=== PATIENT | female | born 1995 | race Caucasian/White ===

== ENCOUNTER 2024-02-28 18:37 | Emergency (ER) | payer BC, OTHER ==
[2024-02-28 18:45] VITALS: TEMP 98.6; BMI 45.9
[2024-02-28] MEDS ORDERED: SODIUM CHLORIDE 1,000 ML IV SCH (19:00)
[2024-02-28 19:33] LABS: BASO % 0.9 % (0-2.0); EOS % 1.3 % (0-4.5); HEMATOCRIT 41.1 % (32.4-45.2); HEMOGLOBIN 13.9 GM/dL (10.7-15.3); LYMPH % 24.5 % (8-40); MCH 28.1 pg (25.7-33.7); MCHC 33.9 g/dl (32.0-36.0); MEAN CELL VOLUME 82.8 fl (80-96); MEAN PLT VOLUME 7.6 fl (7.5-11.1); MONO % 9.8 % (3.8-10.2); NEUT % 63.5 % (42.8-82.8); PLATELET COUNT 228 10^3/uL (134-434); RBC 4.96 M/mm3 (3.60-5.2); WHITE BLOOD COUNT 8.5 K/mm3 (4.0-10.0)
[2024-02-28 19:43] LABS: INR 1.04 (0.83-1.09)
[2024-02-28 19:45] LABS: ACTIVATED PTT 31.9 SECONDS (25.2-36.5)
[2024-02-28 20:34] LABS: CHLORIDE 104 mmol/L (98-107); POTASSIUM 4.1 mmol/L (3.5-5.1); SODIUM 137 mmol/L (136-145)
[2024-02-28 20:36] LABS: ALBUMIN 4.1 g/dl (3.4-5.0); ANION GAP 7 mmol/L (4-13); BLOOD UREA NITROGEN 16.2 mg/dL (7-18); CALCIUM 9.6 mg/dL (8.5-10.1); CO2 26 mmol/L (21-32); GLUCOSE,RANDOM 82 mg/dL (74-106)
[2024-02-28 20:39] LABS: CREATININE 1.1 mg/dL (0.55-1.3); SGOT/AST 18 U/L (15-37); SGPT/ALT 40 U/L (13-61)
[2024-02-28 20:41] LABS: BILIRUBIN,TOTAL 0.5 mg/dL (0.2-1); TOT PROT 7.2 g/dl (6.4-8.2)
[2024-02-28 20:43] LABS: ALK PHOS 43 U/L (45-117)
[2024-02-28 21:12] VITALS: BP 130/52; PULSE 73; RESP 18
[2024-02-28 21:44] LABS: EPI CELLS 34 /uL (0-25.1); HYALINE CASTS 0 /uL (0-3.1); PH,URINE 5.5 (5.0-8.0); URINE APPEARANCE CLEAR; URINE BACTERIA 152 /uL (0-1359); URINE BILIRUBIN NEGATIVE (NEGATIVE); URINE COLOR YELLOW; URINE GLUCOSE (UA) NEGATIVE (NEGATIVE); URINE KETONE 1+ (NEGATIVE); URINE LEUK ESTERASE 1+ (NEGATIVE); URINE NITRITE NEGATIVE (NEGATIVE); URINE PROTEIN NEGATIVE (NEGATIVE); URINE RBC 8 /uL (0-23.9); URINE UROBILINOGEN 0.2 mg/dL (0.2-1.0); URINE WBC 45 /uL (0-25.8)
[2024-02-29 01:33] LABS: CHOLESTEROL 260 mg/dL (50-200)
[2024-02-29 01:35] LABS: LDL CHOLESTEROL (ONLY SJRH) 172 mg/dL (5-100)
[2024-02-29 01:36] LABS: HDL CHOLESTEROL 58 mg/dL (40-60)
== END 2024-02-28 22:38 | disposition home or self-care (01) ==
LOC: JER 18:37
DX: R20.0 Anesthesia of skin (principal); R07.9 Chest pain, unspecified; R20.2 Paresthesia of skin; R29.898 Other symptoms and signs involving the musculoskeletal system; R06.02 Shortness of breath
CPT/HCPCS: 36415; 70450-TC; 71046-TC-FY; 80053; 80061; 81003; 82550; 82962; 83036; 84484; 84703; 85025; 85610; 85730; 87086; 93005; 93010; 99285-25